=== PATIENT | male | born 1930 | race Caucasian/White ===

== ENCOUNTER 2017-04-02 13:53 | Observation (INO) | payer MEDICARE, OTHER ==
[~2017-04-02] VITALS: Ht 182.9 cm; Wt 83.1 kg
[~2017-04-02 13:53] MED LIST: COUMADIN5 MG PO; COUMADIN7.5 MG PO; FLOMAX0.4 M1 PO; FLONASE NASAL50 MCG; FUROSEMIDE20 MG PO; LISINOPRIL10 MG PO; LOPRESSOR25 MG PO; LOPRESSOR50 MG PO; LORTAB 5/3255 MG PO; METOPROL TAR50 MG PO; MULTI COMPLETE PO; OMEPRAZOLE20 MG PO; PRAVACHOL40 MG PO; PRAVASTATIN20 MG PO; SYNTHROID100 MCG PO; SYNTHROID125 MCG PO; TH ASPIRIN LOW81 MG PO; VIAGRA100 MG PO; ZYLOPRIM100 MG PO; [UNRECOGNIZED DRUG - OTHER] PO
[2017-04-02 14:24] LABS: HEMOGLOBIN 12.7 g/dl (14.0-18.0); IMMATURE GRANULOCYTES 0.4 % (0.0-1.0); MEAN CORPUSCULAR HGB 32.4 pG CALC (26.0-32.0); MEAN CORPUSCULAR HGB CONC 31.8 g/L CALC (32.0-36.0); NEUT# 5.03 thou/uL (1.82-7.42); RED BLOOD COUNT 3.92 mill/uL (4.70-6.10); RED CELL DISTRI WIDTH 13.1 % (11.5-15.5)
[2017-04-02 14:40] LABS: ALBUMIN 3.9 g/dL (3.2-5.0); ALKALINE PHOSPHATASE 89 u/l (38-126); ANION GAP 18 (6-22 (CALC)); BILIRUBIN, TOTAL 0.6 mg/dL (0.0-1.4); BUN 29 mg/dL (8-23); BUN/CREATININE RATIO 24 (12-20 (CALC)); CARBON DIOXIDE 24 mmol/l (22-30); CHLORIDE 99 mmol/l (95-108); CREATININE 1.2 mg/dL (0.7-1.3); GFR 57 ML/MIN (>=60 (CALC)); GFR FOR AFR.AMER. > 60 ML/MIN (>=60 (CALC)); SGOT/AST 27 u/l (19-48); SGPT/ALT 24 u/l (11-66); SODIUM 136 mmol/l (137-146); TOTAL PROTEIN 6.9 g/dL (6.3-8.2)
[2017-04-02 14:53] LABS: MYOGLOBIN 260 ng/mL (0 - 121)
[2017-04-02 15:02] LABS: PROTHROMBIN TIME 34.8 SECONDS (9.0-12.5)
[2017-04-02] MEDS ORDERED: JANTOVEN5 MG PO (18:11)
[2017-04-02] MEDS ORDERED: METOPROL TAR25 MG PO (18:13)
[2017-04-02] MEDS ORDERED: MAXZIDE-2537.5 MG/TA PO (18:14)
[2017-04-02] MEDS ORDERED: OMEPRAZOLE10 MG PO (18:15)
[2017-04-02 19:18] VITALS: BP 168/66
[2017-04-02 22:09] LABS: URINE BILIRUBIN - DIPSTICK NEGATIVE (NEGATIVE); URINE BLOOD DIPSTICK NEGATIVE (NEGATIVE); URINE COLOR YELLOW; URINE GLUCOSE - DIPSTICK NEGATIVE (NEGATIVE); URINE KETONE TRACE mg/dL (NEGATIVE); URINE LEUK ESTERASE TRACE (NEGATIVE); URINE NITRITE - DIPSTICK NEGATIVE (Negative); URINE PROTEIN - DIPSTICK NEGATIVE (NEG-TRACE); URINE SPECIFIC GRAVITY 1.025; URINE UROBILINOGEN - DIPSTICK 0.2 E.U./dL (0.2)
[2017-04-02 22:11] LABS: URINE CLARITY CLEAR
[2017-04-03 00:10] VITALS: BP 125/59
[2017-04-03 04:00] VITALS: BP 134/65
[2017-04-03 05:08] LABS: ANION GAP 13 (6-22 (CALC)); BUN 25 mg/dL (8-23); BUN/CREATININE RATIO 24 (12-20 (CALC)); CARBON DIOXIDE 25 mmol/l (22-30); CHLORIDE 101 mmol/l (95-108); GFR > 60 ML/MIN (>=60 (CALC)); GFR FOR AFR.AMER. > 60 ML/MIN (>=60 (CALC)); INTERNATIONAL NORMALIZED RATIO 3.1 RATIO (0.7-1.3); POTASSIUM 4.5 mmol/l (3.5-5.1); PROTHROMBIN TIME 35.8 SECONDS (9.0-12.5); SODIUM 134 mmol/l (137-146)
[2017-04-03 05:09] LABS: HEMATOCRIT 34.7 % (39.0-50.0); HEMOGLOBIN 11.5 g/dl (14.0-18.0); IMMATURE GRANULOCYTES 0.5 % (0.0-1.0); MEAN CELL VOLUME 98.9 fL CALC (80.0-100.0); MEAN CORPUSCULAR HGB 32.8 pG CALC (26.0-32.0); MEAN CORPUSCULAR HGB CONC 33.1 g/L CALC (32.0-36.0); NEUT# 4.59 thou/uL (1.82-7.42); RED BLOOD COUNT 3.51 mill/uL (4.70-6.10); RED CELL DISTRI WIDTH 13.1 % (11.5-15.5)
[2017-04-03 07:42] VITALS: BP 149/73
[2017-04-03 09:21] VITALS: BP 149/73
== END 2017-04-03 10:45 | disposition home or self-care (01) ==
LOC: ED 13:53 → ED-I 17:30 → ED 18:15 → ICU 18:16
PROVIDERS: Family Medicine; ADMIT Internal Medicine; ATTEND Internal Medicine
PROC: 0HQFXZZ Repair Right Hand Skin, External Approach (ICD-10-PCS; principal; 2017-04-02)
PROC: 0HQDXZZ Repair Right Lower Arm Skin, External Approach (ICD-10-PCS; 2017-04-02)
DX: R55 Syncope and collapse (principal); S51.011A Laceration without foreign body of right elbow, initial encounter; S61.214A Laceration without foreign body of right ring finger without damage to nail, initial encounter; I10 Essential (primary) hypertension; I48.91 Unspecified atrial fibrillation; I25.10 Atherosclerotic heart disease of native coronary artery without angina pectoris; E03.9 Hypothyroidism, unspecified; N40.0 Benign prostatic hyperplasia without lower urinary tract symptoms; W18.39XA Other fall on same level, initial encounter; Y92.513 Shop (commercial) as the place of occurrence of the external cause; Z95.0 Presence of cardiac pacemaker; Z87.891 Personal history of nicotine dependence

== ENCOUNTER 2017-05-11 07:01 | Day surgery (SDC) | payer MEDICARE, OTHER ==
[~2017-05-11] VITALS: Ht 182.9 cm; Wt 83.0 kg
[~2017-05-11 07:01] MED LIST changes: +JANTOVEN5 MG PO; +MAXZIDE-2537.5 MG/TA PO; +METOPROL TAR25 MG PO; +OMEPRAZOLE10 MG PO
[2017-05-11 08:39] VITALS: BP 125/58
== END 2017-05-11 09:10 | disposition home or self-care (01) ==
LOC: ENDO 07:01 → ORM 08:45 → ENDO 09:10
PROVIDERS: ATTEND Surgery
PROC: 0DJ08ZZ Inspection of Upper Intestinal Tract, Via Natural or Artificial Opening Endoscopic (ICD-10-PCS; principal; 2017-05-11)
DX: R13.10 Dysphagia, unspecified (principal); Q40.2 Other specified congenital malformations of stomach; I48.91 Unspecified atrial fibrillation; Z87.891 Personal history of nicotine dependence

== ENCOUNTER 2017-05-21 09:16 | Emergency (ER) | payer MEDICARE, OTHER ==
[~2017-05-21] VITALS: Ht 182.9 cm; Wt 85.0 kg
[2017-05-21 09:51] LABS: HEMATOCRIT 34.6 % (39.0-50.0); HEMOGLOBIN 10.9 g/dl (14.0-18.0); IMMATURE GRANULOCYTES 0.6 % (0.0-1.0); MEAN CELL VOLUME 99.1 fL CALC (80.0-100.0); MEAN CORPUSCULAR HGB 31.2 pG CALC (26.0-32.0); MEAN CORPUSCULAR HGB CONC 31.5 g/L CALC (32.0-36.0); NEUT# 6.81 thou/uL (1.82-7.42); RED BLOOD COUNT 3.49 mill/uL (4.70-6.10)
[2017-05-21 10:08] LABS: INTERNATIONAL NORMALIZED RATIO 1.7 RATIO (0.7-1.3); PROTHROMBIN TIME 18.9 SECONDS (9.0-12.5)
[2017-05-21] MEDS ORDERED: DOXYCYC MONO100 M1 PO (11:05)
[2017-05-21 11:27] LABS: ALKALINE PHOSPHATASE 166 u/l (38-126); ANION GAP 17 (6-22 (CALC)); BILIRUBIN, TOTAL 0.4 mg/dL (0.0-1.4); BUN 24 mg/dL (8-23); BUN/CREATININE RATIO 19 (12-20 (CALC)); CARBON DIOXIDE 25 mmol/l (22-30); CHLORIDE 99 mmol/l (95-108); CREATININE 1.3 mg/dL (0.7-1.3); GFR 52 ML/MIN (>=60 (CALC)); GFR FOR AFR.AMER. > 60 ML/MIN (>=60 (CALC)); POTASSIUM 4.6 mmol/l (3.5-5.1); SGOT/AST 27 u/l (19-48); SGPT/ALT 41 u/l (11-66); SODIUM 136 mmol/l (137-146); TOTAL PROTEIN 6.3 g/dL (6.3-8.2)
[2017-05-21 12:11] VITALS: BP 166/80
== END 2017-05-21 12:22 ==
LOC: ED 09:16
PROVIDERS: Emergency Medicine
PROC: 0HQ1XZZ Repair Face Skin, External Approach (ICD-10-PCS; principal; 2017-05-21)
PROC: 0HQFXZZ Repair Right Hand Skin, External Approach (ICD-10-PCS; 2017-05-21)
DX: S02.2XXA Fracture of nasal bones, initial encounter for closed fracture (principal); S01.411A Laceration without foreign body of right cheek and temporomandibular area, initial encounter; S61.411A Laceration without foreign body of right hand, initial encounter; S80.211A Abrasion, right knee, initial encounter; S00.31XA Abrasion of nose, initial encounter; S00.81XA Abrasion of other part of head, initial encounter; I25.10 Atherosclerotic heart disease of native coronary artery without angina pectoris; I48.91 Unspecified atrial fibrillation; E78.5 Hyperlipidemia, unspecified; I11.0 Hypertensive heart disease with heart failure; I50.9 Heart failure, unspecified; M10.9 Gout, unspecified; W01.0XXA Fall on same level from slipping, tripping and stumbling without subsequent striking against object, initial encounter; Y92.22 Religious institution as the place of occurrence of the external cause

== ENCOUNTER 2017-06-11 09:58 | Observation (INO) | payer MEDICARE, OTHER ==
[~2017-06-11] VITALS: Ht 182.9 cm; Wt 82.6 kg
[~2017-06-11 09:58] MED LIST changes: +DOXYCYC MONO100 M1 PO
--- NOTE | 2017-06-11 10:06 | NUR ---
PT TO ROOM FOR EXAM
--- NOTE | 2017-06-11 10:30 | NUR ---
INTRODUCED SELF TO PT. PER SON AND DAUGHTER PT TRIPPED OVER DOOR ENTRANCE STEP AND FELL FOWARD. DENEIS ANY LOC AT TIME OF ALL. PT WITH DENIES HEAD/NECK/BACK PAIN. PT RECENTLY SEEN IN ED 1 MONTH AGO FOR SIMILAR COMPLAINT. ABRASIONS NOTED TO RIGHT EYEBROW AND RIGHT CHEEK. LACERATION NOTED TO LEFT FOREARM WITH DRESSING IN PLACE.
--- NOTE | 2017-06-11 10:40 | NUR ---
#20 IV STARTED IN [facility]. LAB SPECIMENS OBTAINED. PT TOELRATED WELL. PT TO XRAY VIA WC.
[2017-06-11 10:58] LABS: HEMATOCRIT 32.8 % (39.0-50.0); HEMOGLOBIN 10.3 g/dl (14.0-18.0); IMMATURE GRANULOCYTES 0.4 % (0.0-1.0); MEAN CELL VOLUME 98.2 fL CALC (80.0-100.0); MEAN CORPUSCULAR HGB 30.8 pG CALC (26.0-32.0); MEAN CORPUSCULAR HGB CONC 31.4 g/L CALC (32.0-36.0); NEUT# 5.52 thou/uL (1.82-7.42); RED BLOOD COUNT 3.34 mill/uL (4.70-6.10); RED CELL DISTRI WIDTH 15.5 % (11.5-15.5)
--- NOTE | 2017-06-11 11:08 | NUR ---
DR JEEVAN FUENTES FOR SUTRE REPAIR.
[2017-06-11 11:09] LABS: ANION GAP 16 (6-22 (CALC)); BUN 27 mg/dL (8-23); BUN/CREATININE RATIO 21 (12-20 (CALC)); CARBON DIOXIDE 24 mmol/l (22-30); CHLORIDE 98 mmol/l (95-108); CREATININE 1.3 mg/dL (0.7-1.3); GFR 52 ML/MIN (>=60 (CALC)); GFR FOR AFR.AMER. > 60 ML/MIN (>=60 (CALC)); INTERNATIONAL NORMALIZED RATIO 1.7 RATIO (0.7-1.3); PROTHROMBIN TIME 19.5 SECONDS (9.0-12.5); SODIUM 133 mmol/l (137-146)
--- NOTE | 2017-06-11 11:38 | NUR ---
DRESSING PLACED TO LEFT FOREARM S/P LACERATION REPAIR. PT TOLERATED WELL. ABRASIONS TO FACE CLEANSED AND BANDAID PLACED.
--- NOTE | 2017-06-11 12:02 | NUR ---
DR CHEW IN ROOM TO SPEAK WITH PT AND FAMILY.
--- NOTE | 2017-06-11 12:06 | NUR ---
PER DR CHEW PT WISHED TO NOT BE ADMITTED TO HOSPITAL FOR OBSERVATION.
--- NOTE | 2017-06-11 12:15 | NUR ---
IN ROOM TO SPEAK WITH PT REGARDING LEAVING AGAINST MEDICAL ADVICE. EXPLAINED ALL RISKS TO LEAVING AND POSSIBLITY OF , PT DECIDED TO STAY IN HOSPITAL FOR ADMISSION. FAMILY BEDSIDE AND AGREES WITH SAME. DR CHEW MADE AWARE.
--- NOTE | 2017-06-11 12:23 | NUR ---
DR CHEW ON PHONE WITH DR MATOS FOR ADMISSION.
--- NOTE | 2017-06-11 12:30 | NUR ---
LUNCH TRAY SERVED TO PT.
--- NOTE | 2017-06-11 12:42 | NUR ---
ATTEMPTED TO CALL REPORT TO KATYA PFEIFFER UNAVAILABLE TO TAKE REPORT.
--- NOTE | 2017-06-11 12:55 | NUR ---
PT ASSISTED TO URINAL, STANDS UP WITHOUT DIFFICULTY.200 CC OF CLEAR YELLOW URINE PRODUCED.
--- NOTE | 2017-06-11 13:05 | NUR ---
REPORT CALLED TO PHILLIP ALDANA.
--- NOTE | 2017-06-11 13:15 | NUR ---
ATTEMPTED TO TRANSPORT PT, DR MATOS ARRIVED B/S TO [facility] PT.
--- NOTE | 2017-06-11 13:25 | NUR ---
Admission Note Report Given to: PHILLIP ALDANA Transported by: Wheelchair X Stretcher Transported with: X Nurse Transporter X Patent IV O2 Store Host PT TRANSPORTED TO RM # 260 VIA STRETCHER WITH TELE IN PLACE.
--- NOTE | 2017-06-11 13:25 | NUR ---
Admission Note Report Given to: PHILLIP ALDANA Transported by: Wheelchair X Stretcher Transported with: X Nurse Transporter X Patent IV O2 X Motion Picture Critic PT TRANSPORTED TO [facility] [address] VIA STRETCHER WITH TELE IN PLACE.
[2017-06-11 13:32] VITALS: BP 141/71
--- NOTE | 2017-06-11 14:09 | NUR ---
REPORT RECEIVED FROM DONAVON, PT ARRIVED ON UNIT VIA STRETCHER ALERT AND ORIENTED X 4, ORIENTED TO ROOM AND CALL LEHMAN, SETTLED IN BED, EDUCATED ON FALL PRECAUTION, TELE MONITOR IN PLACE. PRESSURE DRESSING TO LFA AND DRESSINGS X [address], WILL CONTINUE TO MONITOR, CALL LEHMAN IN REACH.
[2017-06-11 16:08] VITALS: BP 113/60
--- NOTE | 2017-06-11 17:58 | NUR ---
SITTING UP IN BED HAVING MEAL, ALL NEEDS MET/ADDRESSED, CALL LEHMAN IN REACH.
[2017-06-11 19:52] VITALS: BP 116/59
--- NOTE | 2017-06-11 21:06 | NUR ---
PATIENT ALERT AND ORIENTED SITTING UP IN BED WATCHING TV. RESP EVEN AND UNLABORED, TELE IN PLACE, AND FALL PRECAUTIONS IN PLACE. PLAN OF CARE REVIEWED WITH PATIENT. NO S/S OF DISTRESS. REPORT GIVEN BY KATYA FISHER. INFORMED THE PATIENT TO USE CALL LIGHT FOR ANY NEEDS OR CONCERNS.
[2017-06-12 00:05] VITALS: BP 115/60
--- NOTE | 2017-06-12 00:17 | NUR ---
PATIENT RESTING WITH EYES CLOSED. RESP EVEN AND UNLABORED, NO S/S DISTRESS NOTED. WILL CONTIUNE TO OLMANIOR
--- NOTE | 2017-06-12 04:26 | NUR ---
PATIENT RESTING WITH EYES CLOSED, RESP EVEN AND UNLABORED, NO S/S DISTRESS NOTED AT THIS TIME. WILL CONTUINE TO OLMANIOR.
[2017-06-12 04:30] VITALS: BP 119/59
[2017-06-12 05:10] LABS: ANION GAP 13 (6-22 (CALC)); BUN 23 mg/dL (8-23); BUN/CREATININE RATIO 24 (12-20 (CALC)); CARBON DIOXIDE 24 mmol/l (22-30); CHLORIDE 102 mmol/l (95-108); GFR > 60 ML/MIN (>=60 (CALC)); GFR FOR AFR.AMER. > 60 ML/MIN (>=60 (CALC)); POTASSIUM 4.6 mmol/l (3.5-5.1); SODIUM 135 mmol/l (137-146)
[2017-06-12 05:22] LABS: INTERNATIONAL NORMALIZED RATIO 1.7 RATIO (0.7-1.3); PROTHROMBIN TIME 19.3 SECONDS (9.0-12.5)
[2017-06-12 05:25] LABS: HEMATOCRIT 29.8 % (39.0-50.0); HEMOGLOBIN 9.5 g/dl (14.0-18.0); MEAN CELL VOLUME 97.7 fL CALC (80.0-100.0); MEAN CORPUSCULAR HGB 31.1 pG CALC (26.0-32.0); MEAN CORPUSCULAR HGB CONC 31.9 g/L CALC (32.0-36.0); RED BLOOD COUNT 3.05 mill/uL (4.70-6.10); RED CELL DISTRI WIDTH 15.5 % (11.5-15.5)
--- NOTE | 2017-06-12 06:08 | NUR ---
CHANGED DRESSINGS ON FOREHEAD AND ORIBT. TIMED, DATED, MARKED. SMALL AMOUNT OF DRAINAGE PRESENT.
--- NOTE | 2017-06-12 07:00 | NUR ---
SHIFT CHANGE REPORT FROM TORREY, PT AWAKE ALERT AND ORIENTED, DENIES PAIN, IF INFUSING, TELE MONITOR IN PLACE, ELVIRA HEARING AIDS IN PLACE, ALL NEEDS ADDRESSED, CALL LEHMAN IN REACH.
[2017-06-12 09:13] VITALS: BP 127/67
[2017-06-12 09:18] VITALS: BP 127/67
--- NOTE | 2017-06-12 09:40 | NUR ---
HERE ROUNDING AND WROTE ORDERS, WILL CONTINUE TO MONITOR.
--- NOTE | 2017-06-12 12:35 | NUR ---
Discharge instructions given. Patient verbalizes understanding of same. Discharged in good condition via Wheelchair to Home with friend. All belongings sent with pt. PT DID NOT RECEIVE D/C INSTRUCTIONS ON LEAVING BUT RETURNED LATER TO RECEIVE IT.
--- NOTE | 2017-06-12 14:02 | NUR ---
PT LEFT WITHOUT RECEIVING HIS D/C INSTRUCTIONS, APPARENTLY HE HAD SOME MISUNDERSTANDING ABOUT D/C PLAN AND LEFT RIGHT AFTER HE GOT DRESSED. PT WAS NOTIFIED VIA PHONE AND SAID HE WOULD RETURN FOR INSTRUCTIONS.
--- NOTE | 2017-06-12 15:20 | NUR ---
PT RETURNED TO RECEIVE D/C INSTRUCTIONS AND GIVEN PACKET @ [id number]
== END 2017-06-12 12:40 | disposition home health service (06) ==
LOC: ED 09:58 → ED-I 12:14 → ED 12:32 → MS2 12:33
PROVIDERS: Family Medicine; ADMIT Internal Medicine; ATTEND Internal Medicine
PROC: 0HQEXZZ Repair Left Lower Arm Skin, External Approach (ICD-10-PCS; principal; 2017-06-11)
DX: S06.9X0A Unspecified intracranial injury without loss of consciousness, initial encounter (principal); S00.81XA Abrasion of other part of head, initial encounter; S51.012A Laceration without foreign body of left elbow, initial encounter; I25.10 Atherosclerotic heart disease of native coronary artery without angina pectoris; I48.91 Unspecified atrial fibrillation; M10.9 Gout, unspecified; E78.5 Hyperlipidemia, unspecified; I11.0 Hypertensive heart disease with heart failure; I50.9 Heart failure, unspecified; E03.9 Hypothyroidism, unspecified; N40.0 Benign prostatic hyperplasia without lower urinary tract symptoms; W01.0XXA Fall on same level from slipping, tripping and stumbling without subsequent striking against object, initial encounter; Y92.009 Unspecified place in unspecified non-institutional (private) residence as the place of occurrence of the external cause; S02.19XD Other fracture of base of skull, subsequent encounter for fracture with routine healing; W19.XXXD Unspecified fall, subsequent encounter; Z91.81 History of falling; Z87.891 Personal history of nicotine dependence; Z95.0 Presence of cardiac pacemaker; Z79.01 Long term (current) use of anticoagulants